=== PATIENT | female | born 1950 | race Caucasian/White ===

== ENCOUNTER 2018-08-16 04:41 | Inpatient (IN) | payer MEDICARE, OTHER ==
[~2018-08-16] VITALS: Ht 149.9 cm; Wt 108.3 kg
[2018-08-16 05:26] LABS: BASO # 0.1 (0.0-0.2); BASO % 1.3 % (0.0-2.0); EOS # 0.4 (0.0-0.7); EOS % 3.6 % (0-4.0); GRAN # 5.1 (1.4-6.5); GRAN % 52.2 % (42.2-75.2); HEMATOCRIT 42.3 % (42.0-52.0); HEMOGLOBIN 14.1 g/dl (13.5-18.0); LYMPH # 2.9 (1.2-3.4); LYMPH % 29.5 % (20.0-51.0); MEAN CELL VOLUME 96 fl (80.0-100.0); MEAN CORPUSCULAR HEMOGLOBIN 32 pg (27.0-31.0); MEAN CORPUSCULAR HGB CONC 33 g/dl (33.0-37.0); MEAN PLATELET VOLUME 9.2 fl (7.4-10.4); MONO # 1.3 (0.1-0.6); PLATELET COUNT 352 K/mm3 (130-400); RED BLOOD COUNT 4.42 M/mm3 (4.20-5.60); REDCELL DISTRIBUTION WIDTH-CV 13.7 % (11.5-14.5)
[2018-08-16 05:47] LABS: ALANINE AMINOTRANSFERASE 29 U/L (21-72); ALBUMIN 4.4 gm/dL (3.5-5.0); ALKALINE PHOSPHATASE 73 U/L (50-136); ANION GAP 10 mmol/L (7-16); AST,SGOT 43 U/L (15-37); BILIRUBIN,TOTAL 0.4 mg/dL (0.0-1.0); BLOOD UREA NITROGEN 26 mg/dL (9-20); CALCIUM 10.1 mg/dL (8.4-10.2); CARBON DIOXIDE 23 mmol/L (22-30); CHLORIDE 109 mmol/L (98-107); CREATININE, serum 0.63 mg/dL (0.66-1.25); GLUCOSE 129 mg/dL (74-106); LIPASE 742 U/L (23-300); POTASSIUM 4.1 mmol/L (3.4-5.0); SALICYLATE 7.2 mg/dL; SODIUM 142 mmol/L (137-145); TOTAL PROTEIN 8.1 gm/dL (6.4-8.2)
[2018-08-16 05:59] LABS: TROPONIN-I < 0.012 ng/mL (0.000-0.034)
[2018-08-16 06:22] LABS: INR 0.9 (0.8-3.0)
[2018-08-16 06:24] LABS: PARTIAL THROMBOPLASTIN TIME 28.5 SECONDS (26.0-37.0)
--- NOTE | 2018-08-16 14:02 | NUR ---
Pt arrived to room 304 via with ED staff. Pt able to transfer from the WC to the floor bed with the assistance of one. Oriented to room and call light system. Will complete assessment. Pt is resting quietly in the bed at this time and he denies further needs. Call light within reach, will continue to monitor.
[2018-08-16] MEDS ORDERED: ASPIRIN 81M81 MG/TA2 PO (14:21)
[2018-08-16] MEDS ORDERED: TYLENOL 500MG500 MG PO (14:22)
[2018-08-16] MEDS ORDERED: TYLENOL 325MG325 MG PO (14:22)
--- NOTE | 2018-08-16 14:30 | NUR ---
Assessment complete. Pt is AXO X3, denies having any pain at this time. Breathing is even and unlabored on room air. Tele on. RH INT flushes easily, remains free of complications, and is CDI. Pt has family members at the bedside; all questions answered. Pt is sitting up in the bed at this time and she denies further needs. Call light within reach, will continue to monitor.
[2018-08-16 15:32] VITALS: BP 127/64; PULSE 66; TEMP 97.8
--- NOTE | 2018-08-16 18:37 | NUR ---
Since arriving to the floor the pt has been resting quietly. She has remained free of pain. She is sitting up in the bed watching TV at this time and she denies further neesd. Call light within reach.
--- NOTE | 2018-08-16 18:53 | NUR ---
Report given to CARMELITA Rosenthal.
[2018-08-16 19:06] VITALS: BP 117/57; PULSE 62; TEMP 98.3
--- NOTE | 2018-08-16 19:35 | NUR ---
Patient resting in bed, assessment completed, VSS, denies pain. Given a pillow, hat for toilet, toothbrush and toothpaste. IV site free of complications.
--- NOTE | 2018-08-16 21:05 | NUR ---
Call from telemetry at [phone], asking for lead check, stated HR appeared in the 30s. In room 2 leads off, readjusted leads, radial pulse of 65. Called telemetry back and it looked normal again.
[2018-08-16 23:56] VITALS: BP 135/72; PULSE 59; TEMP 98.4
[2018-08-17 03:20] VITALS: BP 140/73; PULSE 59; TEMP 97.5
--- NOTE | 2018-08-17 05:35 | NUR ---
Patient slept on/off last night. VSS, denies pain. IV site free of complications. No needs at this time.
[2018-08-17 06:29] LABS: CALCIUM 8.7 mg/dL (8.4-10.2); CHOLESTEROL RISK RATIO 4.6; CREATININE, serum 0.6 mg/dL (0.52-1.25); MAGNESIUM 1.7 mg/dL (1.6-2.3); POTASSIUM 4.2 mmol/L (3.4-5.0)
[2018-08-17 06:40] LABS: BASO # 0.1 (0.0-0.2); BASO % 1.5 % (0.0-2.0); EOS # 0.4 (0.0-0.7); EOS % 4.3 % (0-4.0); GRAN # 3.8 (1.4-6.5); GRAN % 45.1 % (42.2-75.2); HEMATOCRIT 37.8 % (37.0-47.0); HEMOGLOBIN 12.4 g/dl (12.5-16.0); LYMPH # 3.1 (1.2-3.4); LYMPH % 36.3 % (20.0-51.0); MEAN CELL VOLUME 97 fl (80.0-100.0); MEAN CORPUSCULAR HEMOGLOBIN 32 pg (27.0-31.0); MEAN CORPUSCULAR HGB CONC 33 g/dl (33.0-37.0); MEAN PLATELET VOLUME 9.8 fl (7.4-10.4); MONO # 1.1 (0.1-0.6); MONO % 12.6 % (1.7-9.3); PLATELET COUNT 326 K/mm3 (130-400); RED BLOOD COUNT 3.88 M/mm3 (4.10-5.30); REDCELL DISTRIBUTION WIDTH-CV 14.2 % (11.5-14.5)
--- NOTE | 2018-08-17 08:30 | NUR ---
Assessment complete. Pt is AXO X3, denies having any pain at this time. Breathing is even and unlabored on room air. Tele on. RH infusing, remains free of complications, and is CDI. Pt is sitting up in the bed lookinh at the menu at this time and she denies further needs. Call light within reach, will continue to monitor.
[2018-08-17 08:39] VITALS: BP 129/58; PULSE 57; TEMP 97.6
[2018-08-17 10:55] VITALS: BP 131/62; PULSE 56; TEMP 97.5
--- NOTE | 2018-08-17 14:05 | NUR ---
[facility] met with the patient to discuss discharge plan. The patient lives in [place] with her , Torrey. She reports independence with ADLs and does not use any DME. The patient was just switched to the PCP Dr. Carlyn Villaseñor and she receives her medications at the [facility]. She reports no difficulties obtaining her meds. She did have questions on whether her insurance will cover the new blood thinner meds she will be on and had informed the PA. The patient does not have advanced directives, but she was interested in obtaining the form for DPOA-HC. [facility]AX provided. The patient plans to return home with her upon discharge. No additional needs at this time.
[2018-08-17 16:58] VITALS: BP 118/55; PULSE 56; TEMP 97.9
[2018-08-17 19:01] VITALS: BP 134/66; PULSE 58; TEMP 97.9
[2018-08-17 22:44] VITALS: BP 140/63; PULSE 58; TEMP 98.9
[2018-08-18 04:14] VITALS: BP 139/65; PULSE 56; TEMP 98.7
--- NOTE | 2018-08-18 04:38 | NUR ---
PT HAD UNEVENTFUL NOC. NO C/O CHEST PAIN OR PALPATIONS. VITALS WNL AND TELE REPORTS NORMAL SINUS RHYTHM. CONTINUES TO GET EKG DAILY. PT REQUESTED A SHOWER AT . NO ISSUES OR CONCERNS VOIED THIS SHIFT.
[2018-08-18 06:40] LABS: BASO # 0.1 (0.0-0.2); BASO % 1.4 % (0.0-2.0); EOS # 0.4 (0.0-0.7); EOS % 5.2 % (0-4.0); GRAN # 3.5 (1.4-6.5); GRAN % 42.9 % (42.2-75.2); HEMATOCRIT 37.9 % (37.0-47.0); HEMOGLOBIN 12.3 g/dl (12.5-16.0); LYMPH # 3.2 (1.2-3.4); LYMPH % 38.9 % (20.0-51.0); MEAN CELL VOLUME 98 fl (80.0-100.0); MEAN CORPUSCULAR HEMOGLOBIN 32 pg (27.0-31.0); MEAN CORPUSCULAR HGB CONC 33 g/dl (33.0-37.0); MONO # 0.9 (0.1-0.6); MONO % 11.4 % (1.7-9.3); PLATELET COUNT 329 K/mm3 (130-400); RED BLOOD COUNT 3.88 M/mm3 (4.10-5.30); REDCELL DISTRIBUTION WIDTH-CV 13.9 % (11.5-14.5)
[2018-08-18 06:48] LABS: CALCIUM 9.1 mg/dL (8.4-10.2); CREATININE, serum 0.62 mg/dL (0.52-1.25); MAGNESIUM 1.7 mg/dL (1.6-2.3); POTASSIUM 4.1 mmol/L (3.4-5.0)
[2018-08-18 08:10] VITALS: BP 145/63; PULSE 57; TEMP 97.9
--- NOTE | 2018-08-18 09:30 | NUR ---
pT IS A+Ox3, pleasant, denies SOB, chest pain. Physical assessmetn completed. INT s redness/swelling. Pt ambulatory in room. Denies needs, will continue to monitor
[2018-08-18] MEDS ORDERED: BETAPACE 80MG80 MG PO (10:07)
[2018-08-18] MEDS ORDERED: ELIQUIS 5MG PO (11:11)
--- NOTE | 2018-08-18 13:00 | NUR ---
Pt vitals stable, this RN reviewed discharege isntructions with pt, answered all questions. INT removed with tip intact, site free of complications. No further needs.
== END 2018-08-18 13:00 | disposition home or self-care (01) | DRG 309 ==
LOC: COL.ER 04:41 → EDSEX 04:42 → PEDS 07:21
PROVIDERS: Emergency Medicine; ADMIT Hospitalist
DX: I48.92 Unspecified atrial flutter (principal); Z68.42 Body mass index [BMI] 45.0-49.9, adult; I48.91 Unspecified atrial fibrillation; I08.3 Combined rheumatic disorders of mitral, aortic and tricuspid valves; E78.5 Hyperlipidemia, unspecified; E66.01 Morbid (severe) obesity due to excess calories; I77.819 Aortic ectasia, unspecified site; R73.03 Prediabetes
CPT/HCPCS: 99222-AI; 99231-AI; 99239; J7030

== ENCOUNTER 2018-08-29 10:30 | Emergency (ER) | payer MEDICARE, OTHER ==
[~2018-08-29] VITALS: Ht 147.3 cm; Wt 107.3 kg
[~2018-08-29 10:30] MED LIST: ASPIRIN 81M81 MG/TA2 PO; BETAPACE 80MG80 MG PO; ELIQUIS 5MG PO; TYLENOL 325MG325 MG PO; TYLENOL 500MG500 MG PO
[2018-08-29 10:37] VITALS: BP 194/73; TEMP 97.8
[2018-08-29] MEDS ORDERED: PERCOCET 325 MG1 TA2 PO (12:09)
[2018-08-29 12:21] VITALS: PULSE 62
== END 2018-08-29 12:21 | disposition home or self-care (01) ==
LOC: COL.ER 10:30
DX: M23.91 Unspecified internal derangement of right knee (principal); Z79.82 Long term (current) use of aspirin; Z88.1 Allergy status to other antibiotic agents; X50.0XXA Overexertion from strenuous movement or load, initial encounter; Y92.410 Unspecified street and highway as the place of occurrence of the external cause
CPT/HCPCS: L1846

== ENCOUNTER 2019-03-05 13:45 | Emergency (ER) | payer MEDICARE, OTHER ==
[~2019-03-05] VITALS: Ht 149.9 cm; Wt 102.7 kg
[~2019-03-05 13:45] MED LIST changes: +PERCOCET 325 MG1 TA2 PO
[2019-03-05 13:50] VITALS: BP 192/89
[2019-03-05] MEDS ORDERED: OSTEO-BI-FLEX 21 TAB PO (14:56)
[2019-03-05] MEDS ORDERED: PROBIOTIC-SUNMARK (14:56)
[2019-03-05] MEDS ORDERED: MULTI VITAMINS1 TAB PO (14:56)
[2019-03-05] MEDS ORDERED: FIBER0.52 GM PO (14:57)
[2019-03-05 15:25] LABS: COLLECTION METHOD CLEAN CATCH
[2019-03-05 15:32] LABS: BASO # 0.1 (0.0-0.2); BASO % 1.2 % (0.0-2.0); EOS # 0.2 (0.0-0.7); EOS % 2.5 % (0-4.0); GRAN # 4.2 (1.4-6.5); GRAN % 63.1 % (42.2-75.2); HEMATOCRIT 39.4 % (37.0-47.0); HEMOGLOBIN 12.9 g/dl (12.5-16.0); LYMPH # 1.5 (1.2-3.4); LYMPH % 22.6 % (20.0-51.0); MEAN CELL VOLUME 96 fl (80.0-100.0); MEAN CORPUSCULAR HEMOGLOBIN 32 pg (27.0-31.0); MEAN CORPUSCULAR HGB CONC 33 g/dl (33.0-37.0); MEAN PLATELET VOLUME 9.9 fl (7.4-10.4); MONO # 0.7 (0.1-0.6); MONO % 10.5 % (1.7-9.3); PLATELET COUNT 294 K/mm3 (130-400); REDCELL DISTRIBUTION WIDTH-CV 14.4 % (11.5-14.5)
[2019-03-05 15:35] LABS: PH 7 (5-8); SQUAMOUS EPITHELIAL None Seen /hpf; URINE APPEARANCE Hazy; URINE BACTERIA None Seen /hpf; URINE BILIRUBIN Negative (NEGATIVE); URINE BLOOD Negative (NEGATIVE); URINE COLOR Yellow; URINE GLUCOSE Negative (NEGATIVE); URINE KETONE Negative (NEGATIVE); URINE LEUKOCYTE ESTERASE Negative (NEGATIVE); URINE NITRATE Negative (NEGATIVE); URINE PROTEIN(semi-quant) Negative (NEGATIVE); URINE RBC 0-2 /hpf; URINE UROBILINOGEN Negative (NEGATIVE)
[2019-03-05 15:46] LABS: ALANINE AMINOTRANSFERASE 17 U/L (9-52); ALBUMIN 4.1 gm/dL (3.5-5.0); ALKALINE PHOSPHATASE 64 U/L (50-136); ANION GAP 8 mmol/L (7-16); AST,SGOT 25 U/L (15-37); BILIRUBIN,TOTAL 0.5 mg/dL (0.0-1.0); BLOOD UREA NITROGEN 11 mg/dL (7-17); C-REACTIVE PROTEIN 0.6 mg/dL (0.0-0.9); CALCIUM 9.8 mg/dL (8.4-10.2); CARBON DIOXIDE 28 mmol/L (22-30); CHLORIDE 105 mmol/L (98-107); CREATININE, serum 0.51 (0.52-1.25); GLUCOSE 114 mg/dL (74-106); POTASSIUM 4.3 mmol/L (3.4-5.0); SODIUM 140 mmol/L (137-145); TOTAL PROTEIN 7.4 gm/dL (6.4-8.2)
[2019-03-05 15:58] LABS: TROPONIN-I < 0.012 ng/mL (0.000-0.035)
[2019-03-05 16:58] VITALS: PULSE 58; TEMP 97.8
== END 2019-03-05 16:58 | disposition home or self-care (01) ==
LOC: COL.ER 13:45
PROVIDERS: Emergency Medicine
DX: K62.5 Hemorrhage of anus and rectum (principal); R53.1 Weakness; I48.91 Unspecified atrial fibrillation; R53.83 Other fatigue; R53.81 Other malaise; Z79.01 Long term (current) use of anticoagulants; Z79.82 Long term (current) use of aspirin
CPT/HCPCS: J7030